=== PATIENT | male | born 1990 | race Caucasian/White ===

== ENCOUNTER 2018-01-22 21:40 | Outpatient (CLI) | payer MEDICAID | END 2018-01-22 21:41 | disposition critical access hospital (66) | LOC: EMS 21:40 | PROVIDERS: ATTEND Surgery | DX: R10.9 Unspecified abdominal pain (principal); R11.2 Nausea with vomiting, unspecified | CPT/HCPCS: A0425; A0429; A0999 ==

== ENCOUNTER 2018-01-22 22:19 | Emergency (ER) | payer SELFPAY ==
[2018-01-22] MEDS ORDERED: SODIUM CHLORIDE 0.9% 1,000 ML IV ONE (22:24)
[2018-01-22] MEDS ORDERED: ONDANSETRON 4 MG/2 ML VIAL IVP STA (22:24)
[2018-01-22 22:39] LABS: BASOPHILS % (AUTO) 0.4 %; HGB - HEMOGLOBIN 14.1 g/dL (14.0-18.0); LYMPHOCYTES # (AUTO) 1.1 10^3/uL (1.5-3.5); LYMPHOCYTES % (AUTO) 12.6 %; MEAN CORPUSCULAR HGB CONC 33.6 g/dL (32.0-36.0); MEAN CORPUSCULAR VOLUME 83.5 fL (80.0-94.0); MEAN PLATELET VOLUME 8.5 fL (7.4-11.4); MONOCYTES # (AUTO) 0.4 10^3/uL (0.0-1.0); MONOCYTES % (AUTO) 4.3 %; NEUTROPHILS # (AUTO) 7.4 10^3/uL (1.5-6.6); NEUTROPHILS % (AUTO) 82.7 %; PLT - PLATELET COUNT 213 10^3/uL (130-450); RED BLOOD COUNT 5.02 10^6/uL (4.70-6.10); RED CELL DISTRIBUTION WIDTH 13.5 % (12.0-15.0); WHITE BLOOD COUNT 8.9 x10^3/uL (4.8-10.8)
[2018-01-22 22:53] LABS: ALBUMIN 4.2 g/dL (3.2-5.5); ALBUMIN/GLOBULIN RATIO 1.1 (1.0-2.2); BILIRUBIN,TOTAL 0.9 mg/dL (0.2-1.0); CALCIUM 9.2 mg/dL (8.5-10.3); CREATININE 0.7 mg/dL (0.6-1.2)
[2018-01-22] MEDS ORDERED: KETOROLAC 60 MG/2 ML VIAL IVP STA (23:24)
[2018-01-22] MEDS ORDERED: ONDANSETRON ODT 4 MG Prepack 2 TL PRN (23:24)
[2018-01-22 23:29] LABS: MUDS CUTOFF CONCENTRATIONS CUTOFF CONC BELOW:
[2018-01-22 23:32] LABS: BILIRUBIN,URINE NEGATIVE (NEGATIVE); GLUCOSE, URINE (UA) NEGATIVE (NEGATIVE); KETONES,URINE (UA) 15 mg/dL (NEGATIVE); LEUKOCYTE ESTERASE, URINE NEGATIVE (NEGATIVE); NITRITE,URINE NEGATIVE (NEGATIVE); OCCULT BLOOD,URINE NEGATIVE (NEGATIVE); PROTEIN,URINE NEGATIVE (NEGATIVE); UROBILINOGEN,URINE 0.2 (NORMAL) E.U./dL (NORMAL)
[2018-01-22 23:33] LABS: CLARITY,URINE CLEAR (CLEAR)
[2018-01-22 23:42] LABS: AMPHETAMINE SCREEN,URINE NEGATIVE (NEGATIVE); BENZODIAZEPINES SCREEN, URINE NEGATIVE (NEGATIVE); COCAINE SCREEN URINE NEGATIVE (NEGATIVE); METHADONE SCREEN, URINE NEGATIVE (NEGATIVE); METHAMPHETAMINES SCREEN, URINE NEGATIVE (NEGATIVE); OPIATE SCREEN, URINE POSITIVE (NEGATIVE); OXYCODONE SCREEN, URINE NEGATIVE (NEGATIVE); PROPOXYPHENE SCREEN, URINE NEGATIVE (NEGATIVE); TRICYCLIC ANTIDEPRESSANT,URINE NEGATIVE (NEGATIVE)
--- NOTE | 2018-01-22 23:46 | ED Physician Documentation ---
PD HPI NVD - Stated complaint Stated Complaint: BILAT FLANK PAIN/VOMITING - Chief complaint Chief Complaint: Abd Pain - History obtained from History obtained from: Patient, EMS - History of Present Illness Timing - onset: Today Timing - details: Gradual onset, Still present Associated symptoms: Abdominal pain Contributing factors: Other Recently seen: Not recently seen - Additonal information Additional information: Patient is a 27 year old male presenting to the emergency department for opiod withdrawal. Patient states that he uses heroin everyday but he has not had any for the last two days. Patient complains of multiple episodes of nausea and thinks that something is wrong with his kidneys Review of Systems GI: reports: Abdominal Pain, Nausea, Vomiting PD PAST MEDICAL HISTORY - Past Medical History Past Medical History: Yes : Renal insuffiency, Kidney stones - Past Surgical History Past Surgical History: Yes - Present Medications Home Medications: Ambulatory Orders Medication Instructions Recorded Confirmed Ondansetron Odt [Zofran] 4 mg TL Q6H PRN #10 tablet 01/22/18 - Allergies Allergies/Adverse Reactions: Allergies Allergy/AdvReac Type Severity Reaction Status Date / Time No Known Drug Allergies Allergy Verified 01/22/18 22:36 - Social History Does the pt smoke?: Yes Smoking Status: Current every day smoker Does the pt drink ETOH?: No Does the pt have substance abuse?: Yes Substance Use and Type: Heroin - Immunizations Immunizations are current?: Yes - POLST Patient has POLST: No PD ED PE NORMAL - Vitals Vital signs reviewed: Yes - General General: Alert and oriented X 3 - HEENT HEENT: Atraumatic - Cardiac Cardiac: RRR, No murmur - Respiratory Respiratory: No respiratory distress - Abdomen Abdomen: Soft - Derm Derm: Normal color, Other (track delgado but no infection) Results - Vitals Vitals: Vital Signs - 24 hr 01/22/18 22:20 Temperature 37.3 C Heart Rate 78 Respiratory 20 Rate Blood Pressure 95/60 O2 Saturation 99 Oxygen O2 Source Room air - Labs Labs: Laboratory Tests 01/22/18 01/22/18 01/22/18 22:34 22:34 23:20 WBC 8.9 RBC 5.02 Hgb 14.1 Hct 41.9 L MCV 83.5 MCH 28.0 MCHC 33.6 RDW 13.5 Plt Count 213 MPV 8.5 Neut # (Auto) 7.4 H Lymph # (Auto) 1.1 L Kendall # (Auto) 0.4 Eos # (Auto) 0.0 Baso # (Auto) 0.0 Absolute Nucleated RBC 0.00 Nucleated RBC % 0.0 Sodium 140 Potassium 3.4 L Chloride 106 Carbon Dioxide 25 Anion Gap 9.0 BUN 15 Creatinine 0.7 Estimated GFR (MDRD) 136 Glucose 109 H Calcium 9.2 Total Bilirubin 0.9 AST 24 ALT 25 Alkaline Phosphatase 83 Total Protein 8.0 Albumin 4.2 Globulin 3.8 Albumin/Globulin Ratio 1.1 Lipase 34 Urine Color YELLOW Urine Clarity CLEAR Urine pH 6.0 Ur Specific Finger 1.020 Urine Protein NEGATIVE Urine Glucose (UA) NEGATIVE Urine Ketones 15 H Urine Occult Blood NEGATIVE Urine Nitrite NEGATIVE Urine Bilirubin NEGATIVE Urine Urobilinogen 0.2 (NORMAL) Ur Leukocyte Esterase NEGATIVE Ur Microscopic Review NOT INDICATED Urine Culture Comments NOT INDICATED PD MEDICAL DECISION MAKING - ED course Complexity details: reviewed old records, reviewed results, re-evaluated patient , considered differential, d/w patient ED course: Patient was seen and examined at bedside. labs were drawn. patient was treated with zofran and a fluid bolus. Patient's labs were within normal limits. patient required no further inpatient work up at this time and was stable for discharge with outpatient followup. - Sepsis Event Vital Signs: Vital Signs - 24 hr 01/22/18 22:20 Temperature 37.3 C Heart Rate 78 Respiratory 20 Rate Blood Pressure 95/60 O2 Saturation 99 Oxygen O2 Source Room air Departure - Departure Disposition: 01 Home, Self Care Clinical Impression: Opioid withdrawal Condition: Good Instructions: ED Withdrawal Narcotic Follow-Up: primary,care provider [Other] - As Needed Prescriptions: Ondansetron Odt [Zofran] 4 mg TL Q6H PRN #10 tablet PRN Reason: Nausea / Vomiting Comments: Your diagnostics today are within normal limits. there is no kidney damage. opoid withdrawal is uncomfortable but not life threatening. you can take zofran for nausea and stay well hydrated. you can follow with your doctor as needed. You can return to the emergency department at any time for new, worsening or uncontrollable symptoms.
[2018-01-23 04:12] VITALS: BP 118/83
== END 2018-01-23 01:30 | disposition home or self-care (01) ==
LOC: ED 22:19
DX: F11.23 Opioid dependence with withdrawal (principal); F17.200 Nicotine dependence, unspecified, uncomplicated
CPT/HCPCS: 36415; 80053; 80306; 81001; 81003; 83690; 85025; 87086; 96361; 96374; 96375; 99283